=== PATIENT | male | born 1975 ===

== ENCOUNTER 2017-07-19 09:06 | Outpatient (CLI) | payer BC ==
--- NOTE | 2017-07-19 09:45 | RAD ---
TWO VIEWS CHEST: Comparison: None. History: Cough. FINDINGS: Two views of the chest show normal sized cardiomediastinal silhouette. There is no evidence of consol idation, mass, or pleural effusion. The bones are unremarkable. IMPRESSION: No evidence of acute cardiopulmonary disease. POS: [facility]
== END 2017-07-19 09:07 | disposition home or self-care (01) ==
LOC: RAD-FRANK 09:06
PROVIDERS: ATTEND Internal Medicine
DX: R05 Cough (principal)
CPT/HCPCS: 71046